=== PATIENT | male | born 1980 | race African-American/Black ===

== ENCOUNTER 2021-03-14 19:22 | Emergency (ER) | payer SELFPAY ==
[2021-03-14] MEDS ORDERED: Ketorolac Tromethamine 30 MG/ML VIAL ONE (20:00)
[2021-03-14] MEDS ORDERED: Cyclobenzaprine 10 MG TAB ONE (21:14)
== END 2021-03-14 21:24 | disposition home or self-care (01) ==
LOC: ERS 19:22
DX: M62.830 Muscle spasm of back (principal)
CPT/HCPCS: 72070; 96374; J1885

== ENCOUNTER 2021-07-01 11:21 | Emergency (ER) | payer SELFPAY ==
[2021-07-01 17:35] LABS: SARS-CoV-2 PCR by NAA Not Detected (NotDetected)
== END 2021-07-01 12:24 | disposition home or self-care (01) ==
LOC: ERS 11:21
DX: B34.9 Viral infection, unspecified (principal); Z20.822 Contact with and (suspected) exposure to COVID-19
CPT/HCPCS: 71045; U0003; U0005

== ENCOUNTER 2022-11-18 13:01 | Emergency (ER) | payer SELFPAY | END 2022-11-18 14:24 | disposition home or self-care (01) | LOC: ERS 13:01 | DX: M19.011 Primary osteoarthritis, right shoulder (principal) ==